=== PATIENT | male | born 1955 | race Caucasian/White ===

== ENCOUNTER 2022-12-12 08:24 | Outpatient (CLI) | payer OTHER, SELFPAY | END 2022-12-12 08:25 | disposition home or self-care (01) | PROVIDERS: PCP Emergency Medicine; Visit Provider Emergency Medicine | DX: R73.03 Prediabetes (principal); E66.9 Obesity, unspecified; I10 Essential (primary) hypertension; S52.90XA Unspecified fracture of unspecified forearm, initial encounter for closed fracture | CPT/HCPCS: 80048; 82306 ==

== ENCOUNTER 2022-12-26 10:58 | Day surgery (SDC) | payer OTHER, SELFPAY ==
[2022-12-26] VITALS (13 sets, daily range): BP systolic 134–152; BP diastolic 76–90; PULSE 60–82; RESP 12–16; TEMP 36.2–36.7; O2SAT 93–96; BMI 32.2
[2022-12-26] MEDS: LACTATED RINGERS 1000 ML 1,000 ML 100 ML IV ×2 (11:35→13:21)
[2022-12-26] MEDS: BUPIVACAINE 0.25% 30 ML INJECTION (13:29)
--- NOTE | 2022-12-26 13:44 | PM.GSPRC ---
Operative Note Pre-op diagnosis: Incarcerated umbilical hernia Post-op diagnosis: Same Type of Procedure: Open repair incarcerated 3 cm umbilical hernia with mesh. Indications: The patient is a 67-year-old male with an umbilical hernia that he has had for many years but it is getting larger and starting to have skin thinning over the top. After discussion of options he has elected to proceed with repair. Procedure Description: After discussing the risks and benefits of the procedure, the patient signed informed consent.? The operative site was marked and the patient was brought to the operating room and placed on the operating table in supine position.? Care was taken to pad the patient's pressure points.?? The patient was then intubated by anesthesia.?? The operative site was then prepped and draped in the usual sterile fashion.? A time-out was then performed. Local anesthetic was injected into the fascia, skin and subcutaneous tissues. A curvilinear incision was made at the umbilicus. Dissection was carried down into the subcutaneous tissue using cautery. The hernia sac was encountered and care was taken to not enter it. Dissection was taken down to the fascia, and the umbilical stalk was carefully dissected off of the hernia sac. The hernia was noted to be quite large and containing a large amount of omentum. The sac was incised and the omentum was noted to be adherent to the inside of the sac. These adhesions were taken down with cautery and eventually the omentum was able to be reduced. Once this was done the hernia sac edges were excised and discarded. The umbilical stalk was dissected free from the fascia using cautery. Once this was done the hernia opening was examined. It measured 3 cm. Because of the size of the hernia I elected to repair this with mesh. A preperitoneal pocket was created by dissecting the peritoneum down from the fascia. Hemostasis was achieved with cautery. Once this was done a piece of large Ventralex ST mesh was placed in the space. This was secured in place to the fascia with 2-0 PDS suture circumferentially. The tails were then trimmed. The fascial opening was then closed with 0 Nurolon suture in a [id number] fashion. The umbilicus was reapproximated to the fascia. The skin was then closed with running absorbable suture. A sterile dressing was then applied. ? The patient was then woken and transported to the recovery area in stable condition. ? The patient tolerated the procedure well. Findings: 3 cm fat containing incarcerated umbilical hernia Anesthesia: GETA Surgeon: Mami Orellana MD Estimated blood loss (mL): 5 Condition: stable Disposition: PACU Date of procedure: 12/26/22
--- NOTE | 2022-12-26 13:51 | W.ANESCHARGE ---
Anesthesia Charges Start Date/Time Anesthesia Start Date: 12/26/22 Anesthesia Start Time: 12:10 Stop Date/Time Anesthesia Stop Date: 12/26/22 Anesthesia Stop Time: 13:47
[2022-12-26] MEDS: fentaNYL 100 MCG/2 ML inj 50 MCG IVP (14:07)
[2022-12-26] MEDS: HYDROCODONE-ACETAMIN 5-325 MG 1 TAB PO (14:49)
== END 2022-12-26 15:33 | disposition home or self-care (01) ==
PROVIDERS: PCP Emergency Medicine; Visit Provider Surgery
PROC: (CPT 49594; principal; 2022-12-26 11:45)
DX: K42.0 Umbilical hernia with obstruction, without gangrene (principal)
CPT/HCPCS: 49594; 00830; A9270; C1781; J0330; J0665; J1100; J2250; J2704; J2710; J3010; J3370; J7050; J7120

== ENCOUNTER 2023-01-16 08:30 | Outpatient (CLI) | payer OTHER, SELFPAY | END 2023-01-16 08:31 | disposition home or self-care (01) | PROVIDERS: PCP Emergency Medicine; Visit Provider Emergency Medicine | DX: I10 Essential (primary) hypertension (principal); E66.8 Other obesity; Z68.32 Body mass index [BMI] 32.0-32.9, adult | CPT/HCPCS: 80053; 84443 ==

== ENCOUNTER 2023-01-23 12:49 | Outpatient (CLI) | payer OTHER, SELFPAY ==
--- NOTE | 2023-01-23 13:00 | CRLHL7_ITS ---
For Patients: As a result of the Century Cures Act, medical imaging exams and procedure reports are released immediately into your electronic medical record. You may view this report before your referring provider. If you have questions, please contact your health care provider. DXA BONE MINERAL DENSITY STUDY Reason for exam: RADIUS FRACTURE. Current height (in): 71. Weight (lb): 222. Ethnicity: White. 1. Have you had a previous hip or vertebral fracture? Yes. 2. Have you had any fractures during your adult life which did not result from significant trauma (e.g., auto accident)? Yes. 3. Did either of your parents have a hip fracture? No. 4. Do you smoke? No. 5. Have you ever taken Glucocorticoids? No. 6. Do you have rheumatoid arthritis? No. 7. Do you have secondary osteoporosis? No. 8. Do you drink 3 or more alcoholic drinks per day? No. 9. Are you being treated for osteoporosis? No. 10. Have you ever taken any of the following medications: Actonel, Evista, Fosamax, Miacalcin, Reclast, Boniva, Forteo, HRT (i.e. estrogen/hormone therapy), Protelos, Prolia, Vitamin D, Calcium, other ??? please specify. ANSWER: No. 11. Do you have any of the following medical conditions: Anorexia or bulimia, asthma or emphysema, end stage renal disease, hyperparathyroidism, any seizure disorders, cancer, inflammatory bowel diseases, hysterectomy, other ??? please specify. ANSWER: No. 12. What was your maximum height (inches)? 71. 13. Do you perform weight bearing exercise regularly? No. 14. Do you regularly consume dairy products? Yes. 15. Do you drink caffeinated beverages? Yes. TECHNIQUE: Bone mineral density study was performed using the [employer]. FINDINGS: The results of the study expressed as bone mineral density (BMD) are as follows: Lumbar spine L1 to L4: BMD: 0.802 g/cm2. T-score: -2.6. Z-score: -1.8. Neck Left: BMD: 0.645 g/cm2. T-score: -2.1. Z-score: -1.0. Right: BMD: 0.694 g/cm2. T-score: -1.7. Z-score: -0.6. Total Left: BMD: 0.889 g/cm2. T-score: -1.0. Z-score: -0.3. Right: BMD: 0.943 g/cm2. T-score: -0.6. Z-score: 0.0. IMPRESSION: Osteoporosis. *Comparison exams done prior to 07/2019 were performed on different unit, [employer] Dhaval Duffy M.D. Diagnostic Radiologist [email or web address] [place]/Dictated by: Dhaval Duffy MD @ 01/24/2023 10:44:00 AM (Electronically Signed)
== END 2023-01-23 12:50 | disposition home or self-care (01) ==
LOC: RAD 12:50
PROVIDERS: PCP Emergency Medicine; Visit Provider Emergency Medicine
DX: S52.90XA Unspecified fracture of unspecified forearm, initial encounter for closed fracture (principal); M81.0 Age-related osteoporosis without current pathological fracture
CPT/HCPCS: 77080

== ENCOUNTER 2023-02-20 08:16 | Outpatient (CLI) | payer OTHER, SELFPAY | END 2023-02-20 08:17 | disposition home or self-care (01) | PROVIDERS: PCP Emergency Medicine; Visit Provider Emergency Medicine | DX: M81.0 Age-related osteoporosis without current pathological fracture (principal); R63.4 Abnormal weight loss; R73.03 Prediabetes | CPT/HCPCS: 80048; 84100; 84403; 86258; 86364 ==

== ENCOUNTER 2023-04-09 09:55 | Outpatient (CLI) | payer OTHER, SELFPAY | END 2023-04-09 09:56 | disposition home or self-care (01) | LOC: NFLDREF 04-21 12:57 | PROVIDERS: PCP Emergency Medicine; Referring Provider Emergency Medicine; Visit Provider Emergency Medicine | DX: I48.91 Unspecified atrial fibrillation (principal); I48.92 Unspecified atrial flutter; R94.31 Abnormal electrocardiogram [ECG] [EKG]; M81.0 Age-related osteoporosis without current pathological fracture | CPT/HCPCS: 82306; 82310; 83970 ==

== ENCOUNTER 2023-05-13 14:27 | Outpatient (REF) | payer OTHER, SELFPAY ==
[2023-05-13 15:44] LABS: Blood Urea Nitrogen* 27 mg/dL (7-30); Creatinine* 0.9 mg/dL (0.5-1.5); Estimated Glomerular Filt Rate 93 ml/min
== END 2023-05-13 14:28 | disposition home or self-care (01) ==
LOC: NPINS 14:27
PROVIDERS: PCP Emergency Medicine; Visit Provider Family Medicine
DX: I48.92 Unspecified atrial flutter (principal)
CPT/HCPCS: 82565; 84132; 84520

== ENCOUNTER 2023-07-30 12:50 | Outpatient (REF) | payer OTHER, SELFPAY ==
[2023-07-30 13:41] LABS: Potassium* 4.5 mmol/L (3.6-5.1)
[2023-07-30 13:44] LABS: Blood Urea Nitrogen* 22 mg/dL (7-30); Creatinine* 0.9 mg/dL (0.5-1.5); Estimated Glomerular Filt Rate 92 ml/min
== END 2023-07-30 12:51 | disposition home or self-care (01) ==
LOC: NPINS 12:50
PROVIDERS: PCP Emergency Medicine; Visit Provider Family Medicine
DX: I48.92 Unspecified atrial flutter (principal)
CPT/HCPCS: 82565; 84132; 84520

== ENCOUNTER 2023-09-24 14:02 | Outpatient (REF) | payer OTHER, SELFPAY ==
[2023-09-24 14:46] LABS: Potassium* 4.2 mmol/L (3.6-5.1)
[2023-09-24 14:49] LABS: Blood Urea Nitrogen* 18 mg/dL (7-30); Creatinine* 0.8 mg/dL (0.5-1.5); Estimated Glomerular Filt Rate 96 ml/min
== END 2023-09-24 14:03 | disposition home or self-care (01) ==
LOC: NPINS 14:02
PROVIDERS: PCP Emergency Medicine; Visit Provider Family Medicine
DX: I48.92 Unspecified atrial flutter (principal)
CPT/HCPCS: 82306; 82565; 84132; 84520